=== PATIENT | male | born 1960 | race American Indian/Alaskan Native ===

== ENCOUNTER 2017-05-23 06:11 | Day surgery (SDC) | payer OTHER ==
[~2017-05-23 06:11] MED LIST: ANCEF/STERILE WATER 2 GM/20 ML IV NR
[2017-05-23] MEDS ORDERED: NACL BACTERIOSTATIC INFILTRATI ONE (08:04)
[2017-05-23 08:29] LABS: Basophils % (Auto) 0.5 % (0.0-1.8); Eosinophils % (Auto) 1.8 % (0.0-4.3); Hemoglobin 13.6 gm/dl (11.8-15.2); Mean Corpuscular HGB Conc 34 % (32-34); Mean Corpuscular Hemoglobin 28 pg (28-32); Mean Corpuscular Volume 83 fl (84-94); Platelet Count 179 K/mm3 (140-440); Red Cell Distribution Width 14.3 % (13.2-15.2)
--- NOTE | 2017-05-23 08:40 | Anesthesia Consultation ---
Anesthesia Consult and Med Hx Date of service: 05/23/17 - Airway Anesthetic Teeth Evaluation: Good ROM Head & Neck: Adequate Mental/Hyoid Distance: Adequate Mallampati Class: Class III Intubation Access Assessment: Possibly Difficult - Pre-Operative Health Status ASA Pre-Surgery Classification: ASA3 Proposed Anesthetic Plan: General - Pulmonary Hx Smoking: No SOB: Yes (SOB AT TIMES) Hx Sleep Apnea: Yes (DX SLEEP APNEA , NO CPAP USE) - Cardiovascular System Hx Hypertension: Yes (X 40 YRS) - Other Systems Hx Cancer: No Hx Obesity: Yes (Morbid obesity BMI 44.8)
--- NOTE | 2017-05-23 08:40 | Anesthesia Day of Surgery ---
Anesthesia Day of Surgery - Day of Surgery Patient Examined: Yes Patient H&P Reviewed: Yes Patient is NPO: Yes Beta Blockers: Yes
[2017-05-23 08:44] LABS: Anion Gap 16 mmol/L; BUN/Creatinine Ratio 14.16; Blood Urea Nitrogen 17 mg/dL (9-20); Calcium 8.6 mg/dL (8.4-10.2); Carbon Dioxide 29 mmol/L (22-30); Chloride 98.7 mmol/L (98-107); Glucose 105 mg/dL (75-100); Potassium 3.3 mmol/L (3.6-5.0); Sodium 140 mmol/L (137-145)
[2017-05-23] MEDS ORDERED: NACL 0.9% 1000 ML 1,000 ML IV SCH (09:00)
[2017-05-23] MEDS ORDERED: PEPCID IV NR (09:00)
[2017-05-23] MEDS ORDERED: VERSED IV NR (09:00)
[2017-05-23] MEDS ORDERED: NACL 0.9% IR ONE (09:14)
[2017-05-23] MEDS ORDERED: MARCAINE-EPI 0.5%-1:200,000 INFILTRATI ONE ×2 (09:14→09:27)
[2017-05-23] MEDS ORDERED: SUBLIMAZE ONE (09:19)
[2017-05-23] MEDS ORDERED: DIPRIVAN 10 MG/ML IV ONE ×2 (09:19→09:30)
[2017-05-23] MEDS ORDERED: ZOFRAN ONE (09:48)
[2017-05-23] MEDS ORDERED: ZOFRAN IV PRN (10:32)
[2017-05-23] MEDS ORDERED: DILAUDID IV PRN (10:32)
[2017-05-23] MEDS ORDERED: PERCOCET 5/325 PO PRN (10:32)
--- NOTE | 2017-05-23 11:20 | Operative Report ---
PREOPERATIVE DIAGNOSES: Folliculitis of scalp and left neck with abscess and extensive cellulitis. POSTOPERATIVE DIAGNOSES: Folliculitis of scalp and left neck with abscess and extensive cellulitis. PROCEDURE: Radical resection of scalp/neck 30 square cm. SURGEON: Isaías George MD DESCRIPTION OF PROCEDURE: The patient was brought to the operating room and placed on the table in supine position. Following administration of general anesthesia, the patient was placed into a right lateral decubitus position. The posterior scalp and neck were prepped with Betadine solution and draped in the usual sterile manner. A #10 blade scalpel was used to excise a 30 square cm area of scalp involved with the folliculitis overlying an abscess and involved with extensive cellulitis. Skin incision was deepened through the subcutaneous fat all the way down to the fascia using electrocautery. This area of scalp was sent to pathology as a specimen. Hemostasis controlled using electrocautery. Site was packed with gauze to be changed 3 times per day. Staged closure versus a split thickness skin graft will be performed in the upcoming weeks. JOB# [id number] FTW/NTS
[2017-05-23 14:06] VITALS: BP 152/94
--- NOTE | 2017-05-23 15:45 | Post Anesthesia Evaluation ---
- Post Anesthesia Evaluation Patient Participated: Yes Airway Patent: Yes Stable Respiratory Function: Yes Nausea/Vomiting: No Temp > 96.8F: Yes Pain Manageable: Yes Adequeate Hydration: Yes Anesthesia Complications: No Block Receding Appropriately: Not Applicable Patient on Ventilator: No
== END 2017-05-23 12:05 | disposition home or self-care (01) ==
LOC: OR 06:11
PROVIDERS: ATTEND Plastic Surgery
DX: L02.811 Cutaneous abscess of head [any part, except face] (principal); L02.11 Cutaneous abscess of neck; L03.811 Cellulitis of head [any part, except face]; L03.221 Cellulitis of neck; L73.9 Follicular disorder, unspecified; I10 Essential (primary) hypertension; E66.01 Morbid (severe) obesity due to excess calories; Z68.41 Body mass index [BMI] 40.0-44.9, adult; Z79.899 Other long term (current) drug therapy; Z98.890 Other specified postprocedural states; Z83.3 Family history of diabetes mellitus; Z82.49 Family history of ischemic heart disease and other diseases of the circulatory system
CPT/HCPCS: 11426; 36415; 80048; 85025; 88305; J0690; J1170; J2405; J2704; J3010; J7030; 88304; J2250